=== PATIENT | female | born 1950 | race Caucasian/White ===

== ENCOUNTER 2021-01-08 10:50 | Outpatient (CLI) | payer MEDICARE, OTHER ==
--- NOTE | 2021-01-13 13:24 | Mammography Report ---
BILATERAL DIGITAL SCREENING MAMMOGRAM 3D/2D: 01/08/2021 CLINICAL: Routine screening. Comparison is made to exams dated: 05/26/2016 mammogram and 12/05/2014 mammogram - [facility]. The tissue of both breasts is predominantly fatty. There is a new 0.8 cm x 0.3 cm oval asymmetry with a circumscribed margin in the right breast middle depth medial region seen on the craniocaudal view only 8.3 cm from the nipple. There is a 0.6 cm x 0.3 cm oval asymmetry with a circumscribed margin in the left breast middle depth central to the nipple seen on the craniocaudal view only 4.2 cm from the nipple. No other significant masses or calcifications are seen in either breast. 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 Additional views with possible ultrasound are recommended. The 0.6 cm x 0.3 cm oval asymmetry in the left breast middle depth central to the nipple seen on the craniocaudal view only is indeterminate. Additional views with possible ultrasound are recommended. This exam was interpreted at Station ID: [id number]. NOTE: For mammograms, a report in lay terms will be sent to the patient. Approximately 15% of breast malignancies will not be visualized mammographically. In the management of a palpable breast mass, a negative mammogram must not discourage biopsy of a clinically suspicious lesion. Electronically Signed By: Mac Gomez acr/:01/12/2021 10:00:53 ACR BI-RADS Category 0: Incomplete 3340F PARENCHYMAL PATTERN: (F) - The breast(s) demonstrate(s) diffuse fatty replacement. BI-RADS CATEGORY: (0) - 0 Mammo and [place] [id number] Immediate follow-up LATERALITY: (R)
== END 2021-01-08 10:51 | disposition home or self-care (01) ==
LOC: DI 10:50
PROVIDERS: ATTEND Physician Assistant
DX: Z12.31 Encounter for screening mammogram for malignant neoplasm of breast (principal); N64.89 Other specified disorders of breast

== ENCOUNTER 2021-02-16 08:58 | Outpatient (CLI) | payer MEDICARE, OTHER ==
--- NOTE | 2021-02-17 13:40 | Mammography Report ---
BILATERAL DIGITAL DIAGNOSTIC MAMMOGRAM 3D/2D: 02/16/2021 CLINICAL: Patient returns today to evaluate asymmetries in bilateral breasts. Comparison is made to exams dated: 01/08/2021 mammogram - [facility], 05/26/2016 mamm ogram, and 12/05/2014 mammogram - [facility]. The tissue of both breasts is predominan tly fatty. The 0.8 cm x 0.3 cm oval asymmetry with a circumscribed margin in the right breast anterior depth med ial region seen on the craniocaudal view only 8.3 cm from the nipple is no longer seen and is consist ent with fibroglandular tissue. The benign 0.6 cm x 0.3 cm oval asymmetry with a circumscribed margin in the left breast middle depth central to the nipple seen on the craniocaudal view only 4.2 cm from the nipple is no longer seen an d is consistent with fibroglandular tissue. No other significant masses or calcifications are seen in either breast. IMPRESSION: BENIGN There is no mammographic evidence of malignancy. Return to annual mammogram screening schedule is recommended. This exam was interpreted at Station ID: [id number]. NOTE: For mammograms, a report in lay terms will be sent to the patient. Approximately 15% of breast malignancies will not be visualized mammographically. In the management of a palpable breast mass, a negative mammogram must not discourage biopsy of a clinically suspicious lesion. Electronically Signed By: Nick Barber M.D. jr/:02/16/2021 10:22:12 ACR BI-RADS Category 2: Benign Finding(s) 3342F PARENCHYMAL PATTERN: (F) - The breast(s) demonstrate(s) diffuse fatty replacement. BI-RADS CATEGORY: (2) - 2 Mammogram [id number] return to screening LATERALITY: (B)
== END 2021-02-16 08:59 | disposition home or self-care (01) ==
LOC: DI 08:58
PROVIDERS: ATTEND Physician Assistant
DX: R92.8 Other abnormal and inconclusive findings on diagnostic imaging of breast (principal)

== ENCOUNTER 2022-01-12 10:53 | Outpatient (CLI) | payer MEDICARE, OTHER ==
--- NOTE | 2022-01-13 15:53 | Mammography Report ---
BILATERAL DIGITAL SCREENING MAMMOGRAM 3D/2D: 01/12/2022 CLINICAL: Routine screening. Comparison is made to exams dated: 02/16/2021 mammogram, 01/08/2021 mammogram - [facility], 05/26/2016 mammogram, and 12/05/2014 mammogram - [facility]. The tissue of both breasts is heterogeneously dense. This may lower the sensitivity of mammography. No significant masses, calcifications, or other findings are seen in either breast. There has been no significant interval change. IMPRESSION: NEGATIVE There is no mammographic evidence of malignancy. A 1 year screening mammogram is recommended. This exam was interpreted at Station ID: [id number]. NOTE: For mammograms, a report in lay terms will be sent to the patient. Approximately 15% of breast malignancies will not be visualized mammographically. In the management of a palpable breast mass, a negative mammogram must not discourage biopsy of a clinically suspicious lesion. Electronically Signed By: Ayaka toure/yahaira:01/12/2022 16:11:48 ACR BI-RADS Category 1: Negative 3341F PARENCHYMAL PATTERN: (D) - The breast(s) demonstrate(s) heterogeneously dense fibroglandular parmichael kahn. BI-RADS CATEGORY: (1) - 1 RECOMMENDATION: (ANNUAL) - Recommend routine annual screening mammography. [id number] 1 year screening LATERALITY: (B)
== END 2022-01-12 10:54 | disposition home or self-care (01) ==
LOC: DI.N 10:53
PROVIDERS: ATTEND Physician Assistant
DX: Z12.31 Encounter for screening mammogram for malignant neoplasm of breast (principal)

== ENCOUNTER 2022-07-13 08:15 | Emergency (ER) | payer MEDICARE, OTHER ==
[2022-07-13 08:27] VITALS: BP 141/62
--- NOTE | 2022-07-13 09:22 | XRAY Report ---
PROCEDURE: Foot 3 View RT INDICATIONS: Trauma TECHNIQUE: 3 views of the foot were acquired. COMPARISON: None FINDINGS: Bones: No fractures or dislocations. No suspicious bony lesions. Polyarticular degenerative change s present for example at the first MTP joint and multiple IP joints. Soft tissues: No tibiotalar joint effusion. Achilles tendon appears normal. IMPRESSION: No acute osseous abnormality. If symptoms persist, follow-up radiographs and/or CT may be helpful for further evaluation. Reviewed by: Gus Duran MD on 07/13/2022 9:21 AM PDT Approved by: Gus Duran MD on 07/13/2022 9:21 AM PDT Station ID: [id number]
--- NOTE | 2022-07-13 11:11 | ED Physician Documentation ---
History of Present Illness - Stated complaint Stated Complaint: R FOOT SWOLLEN/PX - Chief complaint Chief Complaint: Ext Problem - History obtained from History obtained from: Patient - Additonal information Additional information: 72-year-old woman with history of hypertension and bifid aortic valve. No personal history of gout but has a family history of same with her father having had it. 2 days of atraumatic pain emanating from the right first MTP. She may have overdone it gardening but she is not sure. There was no clear trauma. No fevers or chills. Review of Systems Constitutional: denies: Fever, Chills Cardiac: reports: Reviewed and negative Respiratory: reports: Reviewed and negative PD PAST MEDICAL HISTORY - Present Medications Home Medications: Ambulatory Orders Medication Instructions Recorded Confirmed HYDROcod/ACETAM 5/325 [[place] 5/325] 1 - 2 tab PO Q6H PRN #10 tablet 07/13/22 cephALEXin [Keflex] 500 mg PO Q6H #28 cap 07/13/22 - Allergies Allergies/Adverse Reactions: Allergies Allergy/AdvReac Type Severity Reaction Status Date / Time Sulfa (Sulfonamide Allergy Hives Verified 07/13/22 08:24 Antibiotics) PD ED PE NORMAL - Vitals Vital signs reviewed: Yes - General General: Alert and oriented X 3, No acute distress - Extremities Extremities: Other (She has redness and swelling at the first MTP of the right foot with mild pain with range of motion of the great toe without spreading cellulitis.) - Neuro Neuro: Alert and oriented X 3, Normal speech Results - Vitals Vitals: Vital Signs - 24 hr 07/13/22 08:24 Temperature 36.4 C L Heart Rate 75 Respiratory 16 Rate Blood Pressure 141/62 H O2 Saturation 98 Oxygen O2 Source Room air - Labs Labs: Laboratory Tests 07/13/22 07/13/22 11:17 11:17 WBC 9.0 RBC 4.55 Hgb 13.2 Hct 41.0 MCV 90.1 MCH 29.0 MCHC 32.2 RDW 14.3 Plt Count 208 MPV 10.1 Neut # (Auto) 7.2 H Lymph # (Auto) 1.0 L [place] # (Auto) 0.6 Eos # (Auto) 0.1 Baso # (Auto) 0.0 Absolute Nucleated RBC 0.00 Nucleated RBC % 0.0 Sodium 139 Potassium 3.5 Chloride 102 Carbon Dioxide 30 Anion Gap 7.0 BUN 16 Creatinine 0.8 Estimated GFR (MDRD) 71 L Glucose 123 H Uric Acid 4.3 Calcium 9.1 PD MEDICAL DECISION MAKING - ED course ED course: The location and exam are suspicious for gout but with her low normal uric acid we will treat for cellulitis as well. Departure - Departure Disposition: Home, Self Care Clinical Impression: Cellulitis Condition: Good Record reviewed to determine appropriate education?: Yes Instructions: Cellulitis Dc Prescriptions: cephALEXin [Keflex] 500 mg PO Q6H #28 cap HYDROcod/ACETAM 5/325 [[place] 5/325] 1 - 2 tab PO Q6H PRN #10 tablet PRN Reason: Pain Comments: I sent your prescriptions to [facility] in May. As discussed, this seems like gout, and may still be gout, but with a high- normal white count and a low-normal uric acid level, this seems less likely and as such, I am starting antibiotics for possible infection. Call your doctor to arrange a follow-up appointment, make the next available appointment. In the interim, return anytime if worse or if new symptoms develop. I am prescribing a short course of narcotic pain medication for you. These are potentially dangerous and addictive medications that should be used carefully. These medications may constipate you. Take an nckq-ifj-txzjvve stool softener (docusate) twice daily with plenty of water while taking these medications. If you go 24 hours without a bowel movement, take qceo-hqq-chnrsvi miralax, per package instructions. Do not drink or drive while taking these medications. If you received narcotic or sedating medications while in the emergency department, do not drive for 24 hours. Store this medication in a safe, secure place and out of reach of children. It is a violation of federal law to give or sell this medication to another person or to use in a manner other than prescribed. The ED will not refill narcotic prescriptions, including prescriptions lost or stolen. To dispose of unwanted medications: 1. [facility] at [address] in [place] has a medication drop box. They accept prescription medications (in pill form) Monday through Monday 9:00 a.m. to 5:00 p.m. 2. The [facility] accepts prescription medications (in pill form only) for disposal year round. Call for more information. 3. Contact the [facility] for the next [facility] sponsored prescription drug collection event. , [phone], or [phone]; Note that many narcotic pain relievers also contain Tylenol/acetaminophen. Please ensure that your total dose of acetaminophen from all sources does not exceed 3 g (3000 mg) per day. Discharge Date/Time: 07/13/22 11:54
[2022-07-13 11:23] LABS: BASOPHILS % (AUTO) 0.1 %; EOSINOPHILS # (AUTO) 0.1 10^3/uL (0.0-0.7); EOSINOPHILS % (AUTO) 1.1 %; HGB - HEMOGLOBIN 13.2 g/dL (12.0-16.0); LYMPHOCYTES % (AUTO) 11.4 %; MEAN CORPUSCULAR HGB CONC 32.2 g/dL (32.0-36.0); MEAN CORPUSCULAR VOLUME 90.1 fL (81.0-99.0); MEAN PLATELET VOLUME 10.1 fL (7.9-10.8); MONOCYTES # (AUTO) 0.6 10^3/uL (0.0-1.0); MONOCYTES % (AUTO) 7.1 %; NEUTROPHILS # (AUTO) 7.2 10^3/uL (1.5-6.6); NEUTROPHILS % (AUTO) 80.1 %; PLT - PLATELET COUNT 208 10^3/uL (130-450); RED BLOOD COUNT 4.55 10^6/uL (4.20-5.40); RED CELL DISTRIBUTION WIDTH 14.3 % (12.0-15.0)
[2022-07-13 11:35] LABS: CALCIUM 9.1 mg/dL (8.5-10.3); CREATININE 0.8 mg/dL (0.4-1.0); POTASSIUM 3.5 mmol/L (3.5-5.0); URIC ACID 4.3 mg/dL (2.6-7.2)
== END 2022-07-13 11:54 | disposition home or self-care (01) ==
LOC: ED 08:15
DX: L03.115 Cellulitis of right lower limb (principal)
CPT/HCPCS: 36415; 80048; 84550; 85025; 99282; 99284

== ENCOUNTER 2023-02-07 15:14 | Outpatient (CLI) | payer MEDICARE, OTHER ==
--- NOTE | 2023-02-07 17:33 | DEXA Report ---
PROCEDURE: Dexa Spine and/or Hip INDICATIONS: POST MENOPAUSAL TECHNIQUE: Dual energy x-ray absorptiometry (DXA) was performed on a Mobilitus System. Regions measur ed are the AP Spine, femoral neck, and if needed forearm. COMPARISON: None FINDINGS: Lumbar Spine: Bone Mineral Density 1.155 g/cm/cm,T score -0.2. Left Femoral Neck: Bone Mineral Density 0.795 g/cm/cm, T score -1.7. Left Hip: Bone Mineral Density 0.901 g/cm/cm,T score -0.8. (T score greater or equal to -1.0: NORMAL) (T score from -1.1 to -2.4: OSTEOPENIA) (T score less than or equal to -2.5 to: OSTEOPOROSIS) Impression: By WHO criteria, this patient has low bone density (osteopenia). Patients with diagnosis of osteoporosis or osteopenia should have regular bone mineral density assess ment. For those eligible for Medicare, routine testing is allowed once every 2 years. Testing frequ ency can be increased for patients who have rapidly progressing disease or for those who are receivin g medical therapy to restore bone mass. Reviewed by: Gus Duran MD on 02/07/2023 5:32 PM PDT Approved by: Gus Duran MD on 02/07/2023 5:32 PM PDT Station ID: [id number]
== END 2023-02-07 15:15 | disposition home or self-care (01) ==
LOC: DI 15:14
PROVIDERS: ATTEND Internal Medicine
DX: M85.88 Other specified disorders of bone density and structure, other site (principal)

== ENCOUNTER 2024-01-03 11:16 | Outpatient (CLI) | payer MEDICARE, OTHER ==
--- NOTE | 2024-01-04 09:10 | Mammography Report ---
BILATERAL DIGITAL SCREENING MAMMOGRAM 3D/2D: 01/03/2024 CLINICAL: Routine screening. Comparison is made to exams dated: 01/12/2022 mammogram, 02/16/2021 mammogram, 01/08/2021 mammogram - [facility], 05/26/2016 mammogram, and 12/05/2014 mammogram - [facility]. Both breasts are heterogeneously dense, which may obscure small masses (category c / 51-75% glandular tissue). There is an oval high density focal asymmetry in the right breast at 3 o'clock posterior depth. This is increased in size. No other significant masses, calcifications, or other findings are seen in either breast. IMPRESSION: INCOMPLETE: NEEDS ADDITIONAL IMAGING EVALUATION The oval high density focal asymmetry in the right breast is indeterminate. Additional views with po ssible ultrasound are recommended. Based on the Tyrer Cuzick model (a risk assessment model) the patient's lifetime risk is 4.5% and her 10 year risk is 3.3%. According to the ACR, ACS, and NCCN guidelines, an annual breast MRI exam rosie g with mammogram is recommended if the patient's lifetime risk is 20% or greater. This exam was interpreted at Station ID: [id number]. NOTE: For mammograms, a report in lay terms will be sent to the patient. Approximately 15% of breast malignancies will not be visualized mammographically. In the management of a palpable breast mass, a negative mammogram must not discourage biopsy of a clinically suspicious lesion. Electronically Signed By: Ayaka toure/yahaira:01/03/2024 16:14:23 ACR BI-RADS Category 0: Incomplete 3340F PARENCHYMAL PATTERN: (D) - The breast(s) demonstrate(s) heterogeneously dense fibroglandular parenchy ma. BI-RADS CATEGORY: (0) - 0 Mammo and US [id number] Immediate follow-up LATERALITY: (B)
== END 2024-01-03 11:17 | disposition home or self-care (01) ==
LOC: DI 11:16
PROVIDERS: ATTEND Internal Medicine
DX: Z12.31 Encounter for screening mammogram for malignant neoplasm of breast (principal); R92.8 Other abnormal and inconclusive findings on diagnostic imaging of breast; R92.333 Mammographic heterogeneous density, bilateral breasts

== ENCOUNTER 2024-01-24 10:53 | Outpatient (CLI) | payer MEDICARE, OTHER ==
--- NOTE | 2024-01-25 09:33 | Ultrasound Report ---
LIMITED ULTRASOUND OF RIGHT BREAST: 01/24/2024 CLINICAL: Patient returns today to evaluate a focal asymmetry in the right breast. Comparison is made to exams dated: 01/24/2024 mammogram, 01/03/2024 mammogram, 01/12/2022 mammogram, 01/08 mammogram, 02/16/2021 mammogram - [facility], and 05/26/2016 mammogram - [facility]. Color flow and real-time ultrasound of the right breast 3 o'clock region were performed on the areas of interest. Trimble scale images of the real-time examination were reviewed. There is a 0.7 cm x 0.5 cm x 0.8 cm irregular mass with an angular margin in the right breast at 4 o' clock posterior depth. This irregular mass is hypoechoic. This correlates with mammography findings . No right axillary adenopathy. IMPRESSION: SUSPICIOUS OF MALIGNANCY The 0.7 cm x 0.5 cm x 0.8 cm irregular mass in the right breast is at a low suspicion for malignancy. An ultrasound guided biopsy is recommended. This exam was interpreted at Station ID: [id number]. SUMMARY: This was discussed with the patient by the radiologist Dr. Rodríguez at the time of the exam. Electronically Signed By: Judy may/:01/24/2024 12:05:51 Ultrasound BI-RADS: 4a Low suspicion for malignancy BI-RADS CATEGORY: (4a) - Low Susp Biopsy follow-up [id number] Immediate follow-up LATERALITY: (B)
--- NOTE | 2024-01-25 09:33 | Mammography Report ---
UNILATERAL RIGHT DIGITAL DIAGNOSTIC MAMMOGRAM 3D/2D WITH SPOT COMPRESSION: 01/24/2024 CLINICAL: Patient returns today to evaluate a focal asymmetry in the right breast. Comparison is made to exams dated: 01/03/2024 mammogram, 01/12/2022 mammogram, 02/16/2021 mammogram, 01/08 mammogram - [facility], 05/26/2016 mammogram, and 12/05/2014 mammogram - [facility]. The right breast is heterogeneously dense, which may obscure small masses (category c / 51-75% glandu lar tissue). There is an oval high density focal asymmetry in the right breast at 3 o'clock posterior depth. This is seen in additional views. No other significant masses or calcifications are seen in the breast. IMPRESSION: INCOMPLETE: NEEDS ADDITIONAL IMAGING EVALUATION The oval high density focal asymmetry in the right breast is indeterminate. A targeted ultrasound of the right breast is recommended and will be performed immediately following this exam. Based on the Tyrer Cuzick model (a risk assessment model) the patient's lifetime risk is 4.2% and her 10 year risk is 3.4%. According to the ACR, ACS, and NCCN guidelines, an annual breast MRI exam rosie g with mammogram is recommended if the patient's lifetime risk is 20% or greater. This exam was interpreted at Station ID: [id number]. NOTE: For mammograms, a report in lay terms will be sent to the patient. Approximately 15% of breast malignancies will not be visualized mammographically. In the management of a palpable breast mass, a negative mammogram must not discourage biopsy of a clinically suspicious lesion. Electronically Signed By: Judy may/:01/24/2024 11:14:59 ACR BI-RADS Category 0: Incomplete 3340F PARENCHYMAL PATTERN: (D) - The breast(s) demonstrate(s) heterogeneously dense fibroglandular parvishnuy ma. BI-RADS CATEGORY: (0) - 0 Ultrasound [id number] Immediate follow-up LATERALITY: (B)
== END 2024-01-24 10:54 | disposition home or self-care (01) ==
LOC: DI 10:53
PROVIDERS: ATTEND Internal Medicine
DX: N63.13 Unspecified lump in the right breast, lower outer quadrant (principal); R92.331 Mammographic heterogeneous density, right breast

== ENCOUNTER 2024-03-04 07:31 | Outpatient (CLI) | payer MEDICARE, OTHER ==
[2024-03-04] MEDS ORDERED: LIDOCAINE-MPF 1% 5 ML VIAL ONE (07:36)
[2024-03-04] MEDS ORDERED: LIDOCAINE 1%-EPI 1:100000 20 ML MDV ONE (07:36)
[2024-03-04] MEDS: LIDOCAINE 1%-EPI 1:100000 20 ML MDV SUBQ ONE (11:50)
[2024-03-04] MEDS: LIDOCAINE-MPF 1% 5 ML VIAL TD ONE (11:51)
--- NOTE | 2024-03-08 15:48 | Mammography Report ---
UNILATERAL RIGHT DIGITAL DIAGNOSTIC MAMMOGRAM 3D/2D - RIGHT BREAST POST-PROCEDURE IMAGING FOR MARKER PLACEMENT: 03/04/2024 CLINICAL: Post right breast ultrasound biopsy clip placement imaging. Comparison is made to exam dated: 01/24/2024 ultrasound - [facility]. The right breast is heterogeneously dense, which may obscure small masses (category c / 51-75% glandu lar tissue). Post biopsy mammogram demonstrates biopsy clip 4 mm anterior to the mass. IMPRESSION: POST PROCEDURE MAMMOGRAM FOR MARKER PLACEMENT Post biopsy mammogram demonstrates biopsy clip 4 mm anterior to the mass. Please see separately dicta nelida ultrasound guided biopsy report for additional details and pathology. Based on the Tyrer Cuzick model (a risk assessment model) the patient's lifetime risk is 4.2% and her 10 year risk is 3.4%. According to the ACR, ACS, and NCCN guidelines, an annual breast MRI exam rosie g with mammogram is recommended if the patient's lifetime risk is 20% or greater. This exam was interpreted at Station ID: [id number]. NOTE: For mammograms, a report in lay terms will be sent to the patient. Approximately 15% of breast malignancies will not be visualized mammographically. In the management of a palpable breast mass, a negative mammogram must not discourage biopsy of a clinically suspicious lesion. Electronically Signed By: Vivi Luna M.D., Ph.D. eb/:03/08/2024 09:24:04 ACR BI-RADS Category Post-procedure mammogram for marker placement PARENCHYMAL PATTERN: (D) - The breast(s) demonstrate(s) heterogeneously dense fibroglandular arlette kahn. BI-RADS CATEGORY: () - Unspecified - other recall n/a LATERALITY: (B)
--- NOTE | 2024-03-08 15:48 | Ultrasound Report ---
ULTRASOUND GUIDED BIOPSY RIGHT BREAST WITH MARKING DEVICE INSERTED: 03/04/2024 CLINICAL: Right breast mass. PATIENT CONSENT: Risks (minor bleeding, infection, vasovagal reaction and repeat procedure), benefits and alternatives were explained to the patient and written informed consent was obtained. Correlation is made to exams dated: 01/24/2024 ultrasound, 01/24/2024 mammogram, 01/03/2024 mammogram, mammogram, 02/16/2021 mammogram, and 01/08/2021 mammogram - [facility]. An ultrasound guided biopsy using real-time ultrasound was performed for the mass located in the righ t breast at 3 o'clock, 8 cm from the nipple. The skin was prepped in the usual manner. Local anesth etic was administered to the access site. A 14 gauge biopsy needle was placed adjacent to the abnorm ality through an introducer device under ultrasound guidance. Once the needle was documented to be i n the correct location, four specimens were obtained using the Marquee biopsy device. A clip was ins erted into the biopsy cavity. A sterile dressing was applied to the access site. Post procedure priya ging demonstrates the biopsy clip 4 mm anterior to the targeted mass on CC view. The specimens were sent to the laboratory for pathological analysis. The biopsy was performed by Dr. Cary. IMPRESSION: ULTRASOUND GUIDED BIOPSY HIGH RISK BENIGN Successful ultrasound guided biopsy of right breast mass at 3 o'clock, 8 cm from the nipple performed by Dr. Cary. 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 Recommend surgical excision. This exam was interpreted at Station ID: [id number]. Vivi Luna M.D., Ph.D. eb/:03/08/2024 09:33:09 BI-RADS CATEGORY: () - Unspecified - other recall n/a LATERALITY: (B)
== END 2024-03-04 07:32 | disposition home or self-care (01) ==
LOC: DI 07:31
PROVIDERS: ATTEND Internal Medicine
DX: R92.8 Other abnormal and inconclusive findings on diagnostic imaging of breast (principal)
CPT/HCPCS: 19083